=== PATIENT | female | born 1945 | race Caucasian/White ===

== ENCOUNTER 2018-02-08 13:42 | Emergency (ER) | payer MEDICARE ==
[~2018-02-08] VITALS: Ht 162.6 cm; Wt 59.4 kg
--- NOTE | 2018-02-08 16:11 | RAD ---
EXAM: Head and cervical spine CT without contrast. HISTORY: Fall. TECHNIQUE: Computed tomographic images the head and cervical spine were obtained without contrast. *One or more of the following individualized dose reduction techniques were utilized for this examination: 1. Automated exposure control. 2. Adjustment of the mA and/or kV according to patient size. 3. Use of iterative reconstruction technique. COMPARISON: None. FINDINGS: Head: There is a small posterior right scalp hematoma. There is no acute intracranial hemorrhage. There is no mass effect or midline shift. There is no hydrocephalus. There are areas of hypodensity within the cerebral white matter, likely due to chronic small vessel disease. There is cerebral volume loss. There is a focus of encephalomalacia within the right cerebellum, likely due to chronic infarction. There is evidence of lens surgery. There is a small right maxillary sinus mucous retention cyst. The mastoid air cells are clear. No calvarial lesion is seen. Cervical spine: There is cervical kyphosis. There is mild anterolisthesis of C3 on C4 and C4 on C5. There is degenerative endplate remodeling with disc space narrowing and osteophytosis primarily at C3-4 through C7. There are multiple endplate Schmorl's nodes. There is facet arthropathy at multiple levels. There is no fracture. There are tiny faint groundglass opacities within the left upper lobe, likely due to atelectasis or postinflammatory in etiology. At C2-C3, there is moderate left facet arthropathy. There is mild left foraminal stenosis. At C3-C4, there is a left posterior lateral disc osteophyte complex superimposed on a disc bulge and endplate osteophytosis. There is severe left facet arthropathy. There is bilateral uncovertebral arthropathy. There is moderate to severe right and moderate left foraminal stenosis. At C4-C5, there is a disc bulge and endplate osteophytosis. There is moderate left facet arthropathy. There is mild left foraminal stenosis. At C5-C6, there is a right posterior lateral disc osteophyte complex superimposed on a disc bulge and endplate osteophytosis. There is a right uncovertebral arthropathy. There is severe right foraminal stenosis. At C6-C7, there is a disc bulge and endplate osteophytosis. There is a right uncovertebral arthropathy. There is moderate to severe right foraminal stenosis. IMPRESSION: 1. Small posterior right scalp soft tissue hematoma. 2. No acute intracranial finding or evidence of acute cervical spine trauma. 3. Decreased attenuation within the cerebral white matter, likely due to chronic small vessel disease. 4. Cerebral volume loss. 5. Chronic infarct within the right cerebellum. 6. Multilevel degenerative change within the cervical spine, resulting in significant foraminal stenosis at the aforementioned levels. Electronically signed by: Dayana Schreiber MD (02/08/2018 4:07 PM) [facility]
--- NOTE | 2018-02-08 16:21 | RAD ---
EXAM: Pelvis and right hip, 3 views. HISTORY: Fall. Pain. COMPARISON: None. FINDINGS: A frontal view the pelvis and 2 views of the right hip are obtained. There is right hip joint space narrowing with degenerative subchondral sclerosis and marginal femoral head osteophytosis. There is degenerative change at the lumbosacral junction. IMPRESSION: 1. Mild right hip osteoarthritis. 2. No acute osseous finding. Electronically signed by: Dayana Schreiber MD (02/08/2018 4:17 PM) [place] [id number]
--- NOTE | 2018-02-08 16:52 | PHYS DOC ---
Past Medical History Past Medical History: High Cholesterol, Hypertension Past Surgical History: Tonsillectomy Alcohol Use: None Drug Use: None Adult General Chief Complaint Chief Complaint: MECHANICAL FALL HPI HPI Patient is a 73 year old Female who is alert and oriented and presents with falling at target today. Patient states she is walking into the doorway and automatic doors came back and closed on her which knocked her back and she hit her right side of her back of her head on the pavement. Patient denies LOC, nausea, vomiting. Patient states this happened 1245 this afternoon. Patient states she has a headache she rates a 7 out of 10. Patient denies any visual changes. Patient also states that she has right hip pain. Review of Systems Review of Systems Constitutional: Denies fever or chills [] Eyes: Denies change in visual acuity, redness, or eye pain [] HENT: Denies nasal congestion or sore throat [] Respiratory: Denies cough or shortness of breath [] Cardiovascular: No additional information not addressed in HPI [] GI: Denies abdominal pain, nausea, vomiting, bloody stools or diarrhea [] : Denies dysuria or hematuria [] Musculoskeletal: Denies back pain. Hip joint pain [] Integument: Abrasion to back of head with controlled bleeding. Denies rash or skin lesions [] Neurologic: Headache, focal weakness or sensory changes [] Endocrine: Denies polyuria or polydipsia [] All other systems were reviewed and found to be within normal limits, except as documented in this note. Current Medications Current Medications Current Medications Medications (Trade) Dose Ordered Sig/Ariel Start Time Stop Time Status Last Admin Dose Admin Diphtheria/ Tetanus/Acell Pertussis (Boostrix) 0.5 ml ONCE ONCE 02/08/18 17:15 02/08/18 17:16 DC Lidocaine/Sodium Bicarbonate (Buffered Lidocaine 1%) 3 ml 1X ONCE 02/08/18 17:30 02/08/18 17:31 DC 02/08/18 17:24 3 ML Allergies Allergies Allergies Coded Allergies Type Severity Reaction Last Updated Verified No Known Drug Allergies 02/08/18 No Physical Exam Physical Exam Constitutional: Well developed, well nourished, no acute distress, non-toxic appearance. [] HENT: Normocephalic, atraumatic, bilateral external ears normal, oropharynx moist, no oral exudates, nose normal. [] Eyes: PERRLA, EOMI, conjunctiva normal, no discharge. [] Neck: Normal range of motion, no tenderness, supple, no stridor. [] Cardiovascular:Heart rate regular rhythm, no murmur [] Lungs & Thorax: Bilateral breath sounds clear to auscultation [] Abdomen: Bowel sounds normal, soft, no tenderness, no masses, no pulsatile masses. [] Skin: Abrasion to back of scalp. Warm, dry, no erythema, no rash. [] Back: No tenderness, no CVA tenderness. [] Extremities: Right hip tenderness, no cyanosis, no clubbing, ROM intact, no edema. [] Neurologic: Alert and oriented X 3, normal motor function, normal sensory function, no focal deficits noted. [] Psychologic: Affect normal, judgement normal, mood normal. [] Current Patient Data Vital Signs Vital Signs Date Time Temp Pulse Resp B/P (MAP) Pulse Ox O2 Delivery O2 Flow Rate FiO2 02/08/18 13:42 97.9 61 18 160/86 (110) 98 Room Air 97.9 EKG EKG [] Radiology/Procedures Radiology/Procedures CT HEAD AND SPINE, X RAY HIP AND PELVIS Impressions: [facility] [address] [place] [address] IMAGING REPORT Signed PATIENT: DOM MAI ACCOUNT: [id number] : 1945 LOCATION: ER AGE: 73 SEX: F EXAM STATUS: REG ER ORD. PHYSICIAN: SONI PRICE APRN REASON: FALL/ HIT HEAD PROCEDURE: CT HEAD AND CERVICAL SPINE WO EXAM: Head and cervical spine CT without contrast. HISTORY: Fall. TECHNIQUE: Computed tomographic images the head and cervical spine were obtained without contrast. *One or more of the following individualized dose reduction techniques were utilized for this examination: 1. Automated exposure control. 2. Adjustment of the mA and/or kV according to patient size. 3. Use of iterative reconstruction technique. COMPARISON: None. FINDINGS: Head: There is a small posterior right scalp hematoma. There is no acute intracranial hemorrhage. There is no mass effect or midline shift. There is no hydrocephalus. There are areas of hypodensity within the cerebral white matter, likely due to chronic small vessel disease. There is cerebral volume loss. There is a focus of encephalomalacia within the right cerebellum, likely due to chronic infarction. There is evidence of lens surgery. There is a small right maxillary sinus mucous retention cyst. The mastoid air cells are clear. No calvarial lesion is seen. Cervical spine: There is cervical kyphosis. There is mild anterolisthesis of C3 on C4 and C4 on C5. There is degenerative endplate remodeling with disc space narrowing and osteophytosis primarily at C3-4 through C7. There are multiple endplate Schmorl's nodes. There is facet arthropathy at multiple levels. There is no fracture. There are tiny faint groundglass opacities within the left upper lobe, likely due to atelectasis or postinflammatory in etiology. At C2-C3, there is moderate left facet arthropathy. There is mild left foraminal stenosis. At C3-C4, there is a left posterior lateral disc osteophyte complex superimposed on a disc bulge and endplate osteophytosis. There is severe left facet arthropathy. There is bilateral uncovertebral arthropathy. There is moderate to severe right and moderate left foraminal stenosis. At C4-C5, there is a disc bulge and endplate osteophytosis. There is moderate left facet arthropathy. There is mild left foraminal stenosis. At C5-C6, there is a right posterior lateral disc osteophyte complex superimposed on a disc bulge and endplate osteophytosis. There is a right uncovertebral arthropathy. There is severe right foraminal stenosis. At C6-C7, there is a disc bulge and endplate osteophytosis. There is a right uncovertebral arthropathy. There is moderate to severe right foraminal stenosis. IMPRESSION: 1. Small posterior right scalp soft tissue hematoma. 2. No acute intracranial finding or evidence of acute cervical spine trauma. 3. Decreased attenuation within the cerebral white matter, likely due to chronic small vessel disease. 4. Cerebral volume loss. 5. Chronic infarct within the right cerebellum. 6. Multilevel degenerative change within the cervical spine, resulting in significant foraminal stenosis at the aforementioned levels. Electronically signed by: Dayana Garcia MD (02/08/2018 4:07 PM) [place] [id number] DICTATED and SIGNED BY: DAYANA GARCIA MD DATE: 02/08/18 1603 [] [facility] [address] [place] [address] IMAGING REPORT Signed PATIENT: DOM MAI ACCOUNT: [id number] : 1945 LOCATION: ER AGE: 73 SEX: F EXAM STATUS: REG ER ORD. PHYSICIAN: SONI PRICE APRN REASON: FALL/ HIT HEAD RT hip pain PROCEDURE: HIP RIGHT 2V WITH PELVIS EXAM: Pelvis and right hip, 3 views. HISTORY: Fall. Pain. COMPARISON: None. FINDINGS: A frontal view the pelvis and 2 views of the right hip are obtained. There is right hip joint space narrowing with degenerative subchondral sclerosis and marginal femoral head osteophytosis. There is degenerative change at the lumbosacral junction. IMPRESSION: 1. Mild right hip osteoarthritis. 2. No acute osseous finding. Electronically signed by: Dayana Garcia MD (02/08/2018 4:17 PM) [facility] DICTATED and SIGNED BY: DAYANA GARCIA MD DATE: 02/08/18 161 Course & Med Decision Making Course & Med Decision Making Patient is a 73 year old Female who is alert and oriented and presents with falling at target today. Patient states she is walking into the doorway and automatic doors came back and closed on her which knocked her back and she hit her right side of her back of her head on the pavement. Patient denies LOC, nausea, vomiting. Patient states this happened 1245 this afternoon. Patient states she has a headache she rates a 7 out of 10. Patient denies any visual changes. Patient also states that she has right hip pain. Patient's lungs are clear to auscultation. His heart rate is regular with no murmur. Patient denies any dizziness, chest pain, shortness of air. Patient can move all extremities equally. Patient has no neurological deficits. Patient abdomen is soft and nontender. Patient has no extremity tenderness with palpation or hip tenderness with rocking hips or palpation. As no extremity edema or deformities. CT shows 1. Small posterior right scalp soft tissue hematoma.2. No acute intracranial finding or evidence of acute cervical spine trauma.3. Decreased attenuation within the cerebral white matter, likely due to chronic small vessel disease.4. Cerebral volume loss.5. Chronic infarct within the right cerebellum. 6. Multilevel degenerative change within the cervical spine, resulting in significant foraminal stenosis at the aforementioned levels. Patient's hip and pelvis x-ray shows 1. Mild right hip osteoarthritis. 2. No acute osseous finding. Patient was has a small round puncture wound to the back of her head. Puncture wound to the back of the patients head is numbed with lidocaine, cleaned with Saline and Betadine and closed with 4 hai. Patient is given a tetanus shot in the ED too. Patient to return to either her doctors office or to the ED in 5-7 days for staple removal. Patient should return to ED if she begin vomiting or has a syncopal episode or becomes very dizzy. Dragon Disclaimer Dragon Disclaimer This electronic medical record was generated, in whole or in part, using a voice recognition dictation system. Departure Departure Impression: Primary Impression: Fall Additional Impressions: Hip pain Head injury Stapled skin wound Disposition: HOME, SELF-CARE Condition: STABLE Referrals: SANGEETHA PRATER MD (PCP) Patient Instructions: Fall Prevention and Home Safety, Head Injury, Adult, Hip Pain Additional Instructions: Follow up with primary care. Take Tylenol for pain. Scripts Hydrocodone/Apap 5-325 (NORCO 5-325 TABLET) 1 Each Tablet 1 TAB PO PRN Q6HRS PRN for PAIN, #8 TAB 0 Refills Prov: SONI PRICE EXTENSION SERVICE SPECIALIST IN CHARGE 02/08/18 Problem Qualifiers Primary Impression: Fall Encounter type: initial encounter Qualified Codes: W19.XXXA - Unspecified fall, initial encounter Additional Impressions: Hip pain Laterality: right Qualified Codes: M25.551 - Pain in right hip Head injury Encounter type: initial encounter Qualified Codes: S09.90XA - Unspecified injury of head, initial encounter SONI PRICE EXTENSION SERVICE SPECIALIST IN CHARGE Feb 08, 2018 16:52
[2018-02-08] MEDS ORDERED: DIPHTH,PERTUSS(ACELL),TET TOX 0.5 ML DISP.SYRIN. VAX IM ONE (17:15)
[2018-02-08] MEDS ORDERED: HYDR-971 PO (17:19)
[2018-02-08] MEDS ORDERED: LIDOCAINE WITH 8.4% SOD BICARB 3 ML DISP.SYRIN. INJ ONE (17:30)
[2018-02-08 18:41] VITALS: BP 149/66
== END 2018-02-08 18:51 | disposition home or self-care (01) ==
LOC: ER 13:42
DX: S01.01XA Laceration without foreign body of scalp, initial encounter (principal); M25.551 Pain in right hip; E78.00 Pure hypercholesterolemia, unspecified; I10 Essential (primary) hypertension; W22.8XXA Striking against or struck by other objects, initial encounter; Y93.89 Activity, other specified; Y92.89 Other specified places as the place of occurrence of the external cause; Y99.8 Other external cause status
CPT/HCPCS: 12001; 70450; 72125; 73502; 90471; 90715; 99284-25